=== PATIENT | male | born 1970 | race Caucasian/White ===

== ENCOUNTER 2018-09-25 05:51 | Day surgery (SDC) | payer BC ==
[~2018-09-25 05:51] MED LIST: Buffered Lidocaine 0.9% SYRIN* 5 ML/SYR SYRINGE INTRADERM ONE
[2018-09-25] MEDS ORDERED: Famotidine IV* 10 MG/ML 2 ML (20 mg) IV ONE (06:00)
[2018-09-25] MEDS ORDERED: Dexamethasone IV* 4 MG/ML 1 ML (4 MG) IV SLOW PU ONE (06:00)
[2018-09-25] MEDS ORDERED: Buffered Lidocaine 0.9% SYRIN* 5 ML/SYR SYRINGE ONE (06:06)
[2018-09-25] MEDS ORDERED: ceFAZolin 2 GM PREMIX in ORs 2 GM/50 ML BAG IVPB ONE (06:06)
[2018-09-25] MEDS ORDERED: Dexamethasone IV* 4 MG/ML 1 ML (4 MG) ONE ×2 (06:06→08:31)
[2018-09-25] MEDS ORDERED: Famotidine IV* 10 MG/ML 2 ML (20 mg) ONE (06:06)
[2018-09-25] MEDS ORDERED: Morphine VIAL* 10 MG/ML 1 ML VIAL ONE (06:07)
[2018-09-25] MEDS ORDERED: Midazolam* 1 MG/ML 2 ML VIAL (2 MG) ONE (07:05)
[2018-09-25] MEDS ORDERED: fentaNYL* 50 MCG/ML 5 ML VIAL (250 MCG VIAL) ONE (07:05)
[2018-09-25] MEDS ORDERED: Bupivacaine 0.25% SDV* 30 ML ONE (08:10)
[2018-09-25] MEDS ORDERED: Bupivacaine 0.5% SDV PF* 30ML VIAL ONE (08:10)
[2018-09-25] MEDS ORDERED: EPINEPHRINE 1 MG/ML 1 ML VIAL ONE (08:30)
[2018-09-25] MEDS ORDERED: ROPIVACAINE 5 MG/ML 30 ML BTL (0.5%) ONE (08:30)
[2018-09-25] MEDS ORDERED: Lidocaine 2% PF * 5 ML VIAL ONE (08:30)
[2018-09-25] MEDS ORDERED: Desflurane* 240 ML INH ONE (08:30)
[2018-09-25] MEDS ORDERED: Propofol* 10 MG/ML 20 ML BTL IV PUSH ONE (08:31)
[2018-09-25] MEDS ORDERED: Acetaminophen TAB* 325 MG PO PRN (08:39)
[2018-09-25] MEDS ORDERED: Naloxone* 0.4 MG/ML 1 ML VIAL IV PRN (08:39)
[2018-09-25] MEDS ORDERED: Ketorolac INJ* 30 MG/ML 1 ML VIAL IV PRN (08:39)
[2018-09-25] MEDS ORDERED: DiMENhydriNATE IV* 50 MG/ML VIAL IV PUSH PRN (08:39)
[2018-09-25] MEDS ORDERED: fentaNYL* 50 MCG/ML 2 ML VIAL (100 MCG VIAL) IV PRN (08:39)
[2018-09-25] MEDS ORDERED: PROCHLORPERAZINE INJ 5 MG/ML 2 ML VIAL IV PRN (08:39)
--- NOTE | 2018-09-25 08:42 | OP ---
Operative Report - Blank - Operative Report Date of Operation: 09/25/18 Note: Brief Operative Note Preop Dx: Left Inguinal Hernia Postop Dx: same, indirect Procedure: open repair LIH w/ mesh Anesthesia: GET w/ TAP block; local Surgeon: Hilda Director Financial Planning: SIDRA Hernandez Fluids: 1200 ml RL EBL: < 25 ml Specimen: none Drains: none Findings: dictated
[2018-09-25] MEDS ORDERED: Ondansetron INJ* 2 MG/ML VIAL ONE (08:44)
[2018-09-25] MEDS ORDERED: Naloxone* 0.4 MG/ML 10 ML VIAL ONE (08:48)
[2018-09-25] MEDS ORDERED: Ketorolac INJ* 30 MG/ML 1 ML VIAL ONE (09:14)
[2018-09-25 09:23] VITALS: BP 135/87
--- NOTE | 2018-09-26 09:25 | OP ---
CC: Dr. Luna * DATE OF OPERATION: 09/25/18 - SDS DATE OF : 68 SURGEON: Ozzie Stevens MD AUT[employer]LE SERVICE WRITER: SIDRA Cook ANESTHESIOLOGIST: Dr. Egan. ANESTHESIA: General anesthetic, local infiltration. PRE-OP DIAGNOSIS: Left inguinal hernia. POST-OP DIAGNOSIS: Left inguinal hernia. OPERATIVE PROCEDURE: Open repair left inguinal hernia with mesh. DESCRIPTION OF PROCEDURE: The patient was supine on the operating room table. After adequate anesthetic, compression stockings, Rajiv Hugger warmer, and intravenous antibiotics the left lower abdomen was clipped and prepped with antiseptic and draped in a sterile fashion. Approximately 2.5-inch incision was created and carried down to the external oblique which was opened in the direction of its fibers. Cord structures were encircled with a Nuha drain, tented upward. Indirect space hernia was moderately large. It was dissected free and reduced and a cone mesh plug was placed into the internal ring, sutured there with 2-0 Vicryl. Second piece of mesh was placed over the inguinal floor, sutured at the tubercle. Tails were split, brought around the cord structures, and tacked down laterally. External oblique was closed over top with 2-0 Vicryl, Mary's with 3-0 Vicryl, and skin with 4-0 Prolene, followed by a sterile dressing. He tolerated the procedure well, was awakened and brought to Recovery in good condition. There were no complications, no drains, and no pathologic specimens. Sponge and instruments counts were correct. [id number]/[facility] #: [id number] [facility]
== END 2018-09-25 09:51 | disposition home or self-care (01) ==
LOC: OR 05:51
PROVIDERS: ATTEND Surgery
DX: K40.90 Unilateral inguinal hernia, without obstruction or gangrene, not specified as recurrent (principal); G89.18 Other acute postprocedural pain
CPT/HCPCS: C1781; J0690; J1100; J1885; J2250; J2270; J2310; J2405; J2704; J2795; J3010